=== PATIENT | male | born 2000 | race Caucasian/White ===

== ENCOUNTER 2021-12-11 17:30 | Outpatient (CLI) | payer OTHER ==
[2021-12-11] MEDS ORDERED: OLANZapine 5 MG RAPDIS TABLET PO ONE (18:15)
[2021-12-11] MEDS ORDERED: OLANZapine 5 MG TABLET PO SCH (21:00)
[2021-12-11 21:58] VITALS: BP 122/74
[2021-12-13 14:56] LABS: GLUCOMETER DEV NAME(LOC) POC.BV
== END 2021-12-12 10:30 | disposition home or self-care (01) ==
LOC: CSU 17:30
PROVIDERS: ATTEND Nurse Practitioner Psychiatric/Mental Health
DX: F29 Unspecified psychosis not due to a substance or known physiological condition (principal)
CPT/HCPCS: 90792; Z7610

== ENCOUNTER 2022-12-14 21:58 | Inpatient (IN) | payer OTHER ==
[~2022-12-14] VITALS: Ht 175.3 cm; Wt 78.6 kg
[2022-12-14] MEDS ORDERED: HALOPERIDOL LACTATE 5 MG/ML VIAL IM ONE (22:30)
[2022-12-14] MEDS ORDERED: LORazepam 2 MG/ML VIAL IM ONE (22:30)
[2022-12-14 22:43] LABS: BASOPHILS % (AUTO) 0.4 % (0.0-2.0); EOSINOPHILS % (AUTO) 1.8 % (1.0-6.0); HEMOGLOBIN 15.7 g/dL (13.5-17.5); LYMPHOCYTES # (AUTO) 3.1 K/uL (1.0-4.8); LYMPHOCYTES % (AUTO) 40.5 % (22.0-44.0); MEAN CORPUSCULAR HEMOGLOBIN 30.7 pg (26.0-34.0); MEAN CORPUSCULAR HGB CONC 34.8 G/dL (31.0-37.0); MEAN CORPUSCULAR VOLUME 88 fL (80-100); MONOCYTES # (AUTO) 0.7 K/uL (0.1-1.0); MONOCYTES % (AUTO) 8.9 % (2.0-9.0); NEUTROPHILS # (AUTO) 3.7 K/uL (1.8-7.7); NEUTROPHILS % (AUTO) 48.4 % (40.0-70.0); PLATELET COUNT (AUTO) 297 K/uL (150-450); RED BLOOD CELL COUNT(AUTO) 5.09 MIL/uL (4.50-5.90); RED CELL DISTRIBUTION WIDTH 12.8 % (11.5-14.5)
[2022-12-14 22:52] LABS: ANION GAP 9 mmol/L (8-16); CALCIUM, TOTAL 9.4 mg/dL (8.8-10.5); CARBON DIOXIDE 30 mmol/L (22-29); CHLORIDE 101 mmol/L (98-107); CREATININE 1.11 mg/dL (0.60-1.30); GLOMERULAR FILTR. RATE CALC > 60 mL/min (>60); GLUCOSE,RANDOM 108 mg/dL (70-110); POTASSIUM 3.8 mmol/L (3.5-5.1); SODIUM SERUM 140 mmol/L (136-145); UREA NITROGEN, BLOOD 10 mg/dL (7-18)
[2022-12-14 22:52] LABS: COVID AG,FIA SOURCE NASOPHARYNGEAL
[2022-12-14 22:57] LABS: ALANINE AMINOTRANSFERASE 26 U/L (12-78); ALBUMIN 4.2 g/dL (3.4-5.0); ALKALINE PHOSPHATASE 118 U/L (46-116); ASPARTATE AMINOTRANSFERASE 19 U/L (15-37); BILIRUBIN,TOTAL 0.5 mg/dL (0.1-1.0); TOTAL PROTEIN, SERUM 7.9 g/dL (6.4-8.2)
[2022-12-14 23:34] LABS: AMPHET/METH SCREEN,URINE NEGATIVE (NEGATIVE); BARBITURATE SCREEN, URINE NEGATIVE (NEGATIVE); BENZODIAZEPINES SCREEN,URINE NEGATIVE (NEGATIVE); CANNABINOID SCREEN,URINE NEGATIVE (NEGATIVE); COCAINE SCREEN,URINE NEGATIVE (NEGATIVE); METHADONE SCREEN, URINE NEGATIVE (NEGATIVE); OPIATE SCREEN,URINE NEGATIVE (NEGATIVE); PHENCYCLIDINE SCREEN,URINE NEGATIVE (NEGATIVE)
[2022-12-15] MEDS ORDERED: ZOLPIDEM TARTRATE 10 MG TABLET PO PRN
[2022-12-15] MEDS ORDERED: LORazepam 2 MG TABLET PO PRN
[2022-12-15] MEDS ORDERED: HALOPERIDOL 5 MG TABLET PO PRN
[2022-12-15 21:11] VITALS: BP 117/79
[2022-12-15] MEDS ORDERED: INFLUENZA VIRUS VACCINE QVS 2022-23 (6MO+)/PF 60 MCG/0.5 ML SYRINGE IM. ONE (22:30)
[2022-12-16] MEDS ORDERED: LOPERAMIDE HCL 2 MG CAPSULE PO PRN (07:30)
[2022-12-16] MEDS ORDERED: NICOTINE 14 MG/24 HOUR PATCH TD PRN (07:30)
[2022-12-16] MEDS ORDERED: DOCUSATE SODIUM 100 MG CAPSULE PO PRN (07:30)
[2022-12-16] MEDS ORDERED: MAG HYDROX/AL HYDROX/SIMETH ES 30 ML SUSPENSION UDCUP PO PRN (07:30)
[2022-12-16] MEDS ORDERED: MAGNESIUM HYDROXIDE SUSPENSION 30 ML UDCUP PO PRN (07:30)
[2022-12-16] MEDS ORDERED: ALBUTEROL SULFATE HFA 90 MCG/PUFF 8 GM INHALER IH PRN (07:30)
[2022-12-16] MEDS ORDERED: GuaiFENesin/D-METHORPHAN [SUGAR-FREE] 200-20MG/10 ML SYRUP UDCUP PO PRN (07:30)
[2022-12-16] MEDS ORDERED: ACETAMINOPHEN 325 MG TABLET PO PRN (07:30)
[2022-12-16] MEDS ORDERED: IBUPROFEN 400 MG TABLET PO PRN (07:30)
[2022-12-16] MEDS ORDERED: CloNIDine HCL 0.1 MG TABLET PO PRN (07:30)
[2022-12-16] MEDS ORDERED: PETROLATUM,WHITE 28 GM JELLY TP PRN (07:30)
[2022-12-16] MEDS ORDERED: ONDANSETRON HCL 4 MG TABLET PO PRN (07:30)
[2022-12-16 09:51] VITALS: BP 124/69
[2022-12-16 10:04] VITALS: BP 136/86
[2022-12-16 16:22] VITALS: BP 105/62
[2022-12-16] MEDS: LURASIDONE HCL 20 MG TABLET PO SCH (17:25)
[2022-12-16 20:25] VITALS: BP 119/76
[2022-12-17] MEDS: LURASIDONE HCL 20 MG TABLET PO SCH ×2 (06:38→17:44)
[2022-12-17 08:00] VITALS: BP 104/69
[2022-12-17 09:46] VITALS: BP 124/69
[2022-12-17 16:18] VITALS: BP 116/78
[2022-12-17 21:22] VITALS: BP 100/61
[2022-12-18] MEDS: LURASIDONE HCL 20 MG TABLET PO SCH ×2 (06:53→16:29)
[2022-12-18 08:00] VITALS: BP 106/69
[2022-12-18 09:32] VITALS: BP 106/69
[2022-12-18 16:28] VITALS: BP 138/88
[2022-12-18 21:34] VITALS: BP 104/62
[2022-12-19] MEDS: LURASIDONE HCL 20 MG TABLET PO SCH ×2 (07:06→16:40)
[2022-12-19 08:57] VITALS: BP 106/58
[2022-12-19 17:05] VITALS: BP 109/66
[2022-12-19 20:17] VITALS: BP 100/60
[2022-12-20] MEDS: LURASIDONE HCL 20 MG TABLET PO SCH ×2 (06:58→16:36)
[2022-12-20 08:53] VITALS: BP 97/58
[2022-12-20 16:11] VITALS: BP 97/52
[2022-12-20 20:54] VITALS: BP 99/77
[2022-12-21] MEDS: LURASIDONE HCL 20 MG TABLET PO SCH ×2 (06:40→16:06)
[2022-12-21 08:00] VITALS: BP 104/57
[2022-12-21 16:00] VITALS: BP 104/70
[2022-12-21 20:44] VITALS: BP 102/77
[2022-12-22] MEDS: LURASIDONE HCL 20 MG TABLET PO SCH (06:44)
[2022-12-22 09:30] VITALS: BP 102/57
[2022-12-22] MEDS ORDERED: LURA20TA PO (09:53)
[2022-12-22] MEDS ORDERED: LURA20TA2 PO (10:43)
== END 2022-12-22 11:09 | disposition home or self-care (01) | DRG 750 ==
LOC: EMS 22:18 → 3EI 12-15 18:19 → 3EX 12-15 21:00
PROVIDERS: ADMIT Psychiatry & Neurology Child & Adolescent Psychiatry; ATTEND Psychiatry & Neurology Child & Adolescent Psychiatry
DX: F20.0 Paranoid schizophrenia (principal); F41.9 Anxiety disorder, unspecified; Z20.822 Contact with and (suspected) exposure to COVID-19; G47.00 Insomnia, unspecified; R03.0 Elevated blood-pressure reading, without diagnosis of hypertension; F99 Mental disorder, not otherwise specified
CPT/HCPCS: 80053; 80307; 85025; 99291; G0378; G0480; J1630; J2060; Q9967